=== PATIENT | female | born 1935 | race Caucasian/White ===

== ENCOUNTER 2016-12-29 20:43 | Inpatient (IN) | payer MEDICARE, OTHER ==
[2016-12-29] MEDS ORDERED: ASPIRIN EC325 M1 PO (21:18)
[2016-12-29] MEDS ORDERED: PROTONIX40 M2 PO (21:19)
[2016-12-29] MEDS ORDERED: PEPCID20 M1 PO (21:19)
[2016-12-29] MEDS ORDERED: PAMELOR50 M2 PO (21:20)
[2016-12-29] MEDS ORDERED: DICLOFENAC SODI75 M2 PO (21:20)
[2016-12-29] MEDS ORDERED: ZOCOR80 M1 PO (21:21)
[2016-12-29] MEDS ORDERED: NAMENDA10 M1 PO (21:21)
[2016-12-29] MEDS ORDERED: FEOSOL325 M1 PO (21:21)
[2016-12-29] MEDS ORDERED: CALTRATE 600 +1 EAC2 PO (21:22)
[2016-12-29] MEDS ORDERED: AMBIEN10 M1 PO (21:22)
[2016-12-29] MEDS ORDERED: DAILY VITE1 EACH PO (21:23)
[2016-12-29 23:57] LABS: URINE BILIRUBIN NEGATIVE (NEG); URINE BLOOD MODERATE (NEG); URINE GLUCOSE (UA) NEGATIVE (NEG); URINE KETONE MODERATE (NEG); URINE LEUKOCYTE ESTERASE NEGATIVE (NEG); URINE NITRITE NEGATIVE (NEG); URINE PROTEIN MODERATE (NEG)
[2016-12-30 00:04] LABS: URINE APPEARANCE HAZY; URINE COLOR YELLOW
[2016-12-30 00:07] LABS: PROTHROMBIN TIME 11.9 SECONDS (9.0-13.6)
[2016-12-30 00:11] LABS: URINE AMORPHOUS 1+; URINE EPITHELIAL CELLS 0 /[HPF] (0-10); URINE WBC 0 /[HPF] (0-5)
[2016-12-30 00:12] LABS: BASO % 0.1 % (0-2); HCT-HEMATOCRIT 36.8 % (34.0-49.0); HGB-HEMOGLOBIN 12.8 gm/dl (12.0-15.5); IMMATURE GRANULOCYTES ABSOLUTE 0.02 tho/cmm (0-0.03); IMMATURE GRANULOCYTES PERCENT 0.2 % (0-0.3); LYMPH % 5.9 % (20-45); LYMPH ABSOLUTE COUNT 0.6 tho/cmm (0.8-4.5); MCH (MEAN CORPUSCULAR HGB) 31.8 pg (28.0-32.0); MCHC MEAN CORPUSCULAR HGB CONC 34.8 % (32.0-36.0); MCV (MEAN CELL VOLUME) 91.5 fl (82.0-96.0); MEAN PLATELET VOLUME 10.7 cmc (9.4-12.4); MONO % 6.3 % (0-12); MONOCYTE ABSOLUTE COUNT 0.7 tho/cmm (0.0-1.2); NEUTROPHIL ABSOLUTE COUNT 9.2 tho/cmm (1.6-8.0); NEUTROPHIL-AUTOMATED 9.2 tho/cmm (1.6-8.0); NEUTROPHILS % 87.5 % (40-80); PLATELET COUNT 156 tho/cmm (150-450); RED BLOOD COUNT 4.02 mil/cmm (4.00-5.20); RED CELL DISTRIBUTION WIDTH 13.2 % (12.4-16.4); WHITE BLOOD COUNT 10.5 tho/cmm (4.0-10.0)
[2016-12-30 00:14] LABS: ANION GAP 13 mmol/L (0-20); BLOOD UREA NITROGEN 20 mg/dl (6-24); CALCIUM 8.4 mg/dl (8.5-10.5); CARBON DIOXIDE-VENOUS 24 mmol/L (22-32); CHLORIDE 103 mmol/l (96-110); CREATININE 0.71 mg/dl (0.50-1.10); GLUCOSE 120 mg/dL (70-110); POTASSIUM 3.7 mmol/L (3.7-5.1); SODIUM 136 mmol/L (135-145); eGFR VALUE FOR BLACK >90 mL/Min
[2016-12-30] MEDS ORDERED: MAGNESIUM OXID400 M1 PO (16:06)
[2016-12-30] MEDS ORDERED: VITAMIN D31000 UNI4 PO (16:06)
[2016-12-30] MEDS ORDERED: PRESERVISION A1 EAC3 PO (16:10)
[2016-12-31 05:07] LABS: BASO % 0.4 % (0-2); EOS % 1.3 % (0-7); EOSINOPHIL ABSOLUTE COUNT 0.1 tho/cmm (0.0-0.7); HCT-HEMATOCRIT 30.8 % (34.0-49.0); LYMPH % 10.7 % (20-45); LYMPH ABSOLUTE COUNT 0.6 tho/cmm (0.8-4.5); MCH (MEAN CORPUSCULAR HGB) 30.4 pg (28.0-32.0); MCV (MEAN CELL VOLUME) 93.6 fl (82.0-96.0); MEAN PLATELET VOLUME 10.9 cmc (9.4-12.4); MONO % 8.5 % (0-12); MONOCYTE ABSOLUTE COUNT 0.5 tho/cmm (0.0-1.2); NEUTROPHIL ABSOLUTE COUNT 4.2 tho/cmm (1.6-8.0); NEUTROPHIL-AUTOMATED 4.2 tho/cmm (1.6-8.0); NEUTROPHILS % 79.1 % (40-80); PLATELET COUNT 93 tho/cmm (150-450); RED BLOOD COUNT 3.29 mil/cmm (4.00-5.20); RED CELL DISTRIBUTION WIDTH 13.4 % (12.4-16.4); WHITE BLOOD COUNT 5.3 tho/cmm (4.0-10.0)
[2016-12-31 05:09] LABS: MCHC MEAN CORPUSCULAR HGB CONC 32.5 % (32.0-36.0)
[2017-01-01 07:00] LABS: BASO % 0.5 % (0-2); EOS % 2.3 % (0-7); EOSINOPHIL ABSOLUTE COUNT 0.1 tho/cmm (0.0-0.7); HCT-HEMATOCRIT 28.3 % (34.0-49.0); HGB-HEMOGLOBIN 9.7 gm/dl (12.0-15.5); LYMPH % 13.8 % (20-45); LYMPH ABSOLUTE COUNT 0.6 tho/cmm (0.8-4.5); MCH (MEAN CORPUSCULAR HGB) 31.4 pg (28.0-32.0); MCHC MEAN CORPUSCULAR HGB CONC 34.3 % (32.0-36.0); MCV (MEAN CELL VOLUME) 91.6 fl (82.0-96.0); MONO % 12.5 % (0-12); MONOCYTE ABSOLUTE COUNT 0.5 tho/cmm (0.0-1.2); NEUTROPHIL ABSOLUTE COUNT 2.8 tho/cmm (1.6-8.0); NEUTROPHIL-AUTOMATED 2.8 tho/cmm (1.6-8.0); NEUTROPHILS % 70.9 % (40-80); PLATELET COUNT 100 tho/cmm (150-450); RED BLOOD COUNT 3.09 mil/cmm (4.00-5.20); RED CELL DISTRIBUTION WIDTH 13.3 % (12.4-16.4)
[2017-01-01] MEDS ORDERED: XARELTO10 M1 PO (08:45)
[2017-01-01] MEDS ORDERED: ULTRAM50 M1 PO (08:45)
[2017-01-01] MEDS ORDERED: TYLENOL325 M2 PO (08:48)
== END 2017-01-01 15:20 | disposition swing bed (61) | DRG 470 ==
LOC: 5EB 20:43 → ORE 12-30 11:48 → PACU 12-30 13:23 → 5EB 12-30 14:28
PROVIDERS: Orthopaedic Surgery Foot and Ankle Surgery; ADMIT Orthopaedic Surgery Sports Medicine
PROC: 0SR90JA Replacement of Right Hip Joint with Synthetic Substitute, Uncemented, Open Approach (ICD-10-PCS; principal; 2016-12-30)
DX: S72.001A Fracture of unspecified part of neck of right femur, initial encounter for closed fracture (principal); D69.6 Thrombocytopenia, unspecified; F03.90 Unspecified dementia, unspecified severity, without behavioral disturbance, psychotic disturbance, mood disturbance, and anxiety; D62 Acute posthemorrhagic anemia; E78.5 Hyperlipidemia, unspecified; K21.9 Gastro-esophageal reflux disease without esophagitis; M19.90 Unspecified osteoarthritis, unspecified site; Z79.82 Long term (current) use of aspirin; Z66 Do not resuscitate; W01.0XXA Fall on same level from slipping, tripping and stumbling without subsequent striking against object, initial encounter; Y92.019 Unspecified place in single-family (private) house as the place of occurrence of the external cause; S61.210A Laceration without foreign body of right index finger without damage to nail, initial encounter; K59.00 Constipation, unspecified
CPT/HCPCS: C1776; J0171; J0690; J1650; J1885; J2270; J2795